=== PATIENT | male | born 2000 | race Caucasian/White ===

== ENCOUNTER 2025-09-24 08:16 | Emergency (ER) | payer OTHER ==
[~2025-09-24] VITALS: Ht 190.5 cm; Wt 86.1 kg
[2025-09-24] MEDS: BENZONATATE 100 MG CAPSULE PO ONE (10:30)
[2025-09-24] MEDS: dexAMETHasone 4 MG/ML 1 ML VIAL PO ONE (10:30)
[2025-09-24 11:51] VITALS: BP 129/62; TEMP 98.1; O2SAT 97
== END 2025-09-24 11:53 | disposition home or self-care (01) ==
LOC: M ED 08:16
DX: J09.X2 Influenza due to identified novel influenza A virus with other respiratory manifestations (principal)
CPT/HCPCS: 71045; 87486; 87581; 87633; 87798; 99283; J1100